=== PATIENT | female | born 1970 | race Caucasian/White ===

== ENCOUNTER 2022-06-09 19:58 | Emergency (ER) | payer SELFPAY ==
[2022-06-09] MEDS ORDERED: Ketorolac Tromethamine 30 MG/ML VIAL ONE (21:32)
== END 2022-06-09 21:33 | disposition home or self-care (01) ==
LOC: CSHERS 19:58
DX: M54.2 Cervicalgia (principal); F17.210 Nicotine dependence, cigarettes, uncomplicated
CPT/HCPCS: 96372; 99283; J1885

== ENCOUNTER 2022-06-15 20:25 | Emergency (ER) | payer SELFPAY ==
[2022-06-16] MEDS ORDERED: Ibuprofen 200 MG TAB ONE (01:19)
[2022-06-16] MEDS ORDERED: Dexamethasone 4 MG TAB ONE (01:19)
== END 2022-06-16 01:54 | disposition home or self-care (01) ==
LOC: CSHERS 20:25
DX: S29.012A Strain of muscle and tendon of back wall of thorax, initial encounter (principal); X50.0XXA Overexertion from strenuous movement or load, initial encounter
CPT/HCPCS: 99283; J8540

== ENCOUNTER 2022-07-06 13:31 | Emergency (ER) | payer SELFPAY ==
[2022-07-06] MEDS ORDERED: Acetaminophen 500 MG TAB ONE (16:27)
[2022-07-06] MEDS ORDERED: Ketorolac Tromethamine 30 MG/ML VIAL ONE (16:28)
== END 2022-07-06 16:55 | disposition home or self-care (01) ==
LOC: CSHERS 13:31
DX: M25.412 Effusion, left shoulder (principal); F17.210 Nicotine dependence, cigarettes, uncomplicated; M62.830 Muscle spasm of back
CPT/HCPCS: 96372; J1885